=== PATIENT | female | born 1965 | race American Indian/Alaskan Native ===

== ENCOUNTER 2017-06-28 14:32 | Emergency (ER) | payer MEDICAID ==
[2017-06-28 15:07] LABS: Basophils % (Auto) 0.6 % (0.0-1.8); Eosinophils % (Auto) 1.9 % (0.0-4.3); Hematocrit 36.4 % (30.3-42.9); Mean Corpuscular HGB Conc 33 % (30-34); Mean Corpuscular Hemoglobin 26 pg (28-32); Mean Corpuscular Volume 80 fl (79-97); Platelet Count 378 K/mm3 (140-440); Red Blood Count 4.53 M/mm3 (3.65-5.03); Red Cell Distribution Width 15.7 % (13.2-15.2); White Blood Count 6.1 K/mm3 (4.5-11.0)
[2017-06-28 15:25] LABS: Anion Gap 17 mmol/L; BUN/Creatinine Ratio 14; Blood Urea Nitrogen 11 mg/dL (7-17); Carbon Dioxide 28 mmol/L (22-30); Chloride 103.2 mmol/L (98-107); Glucose 97 mg/dL (65-100); Potassium 3.7 mmol/L (3.6-5.0); Sodium 144 mmol/L (137-145)
--- NOTE | 2017-06-28 15:34 | XRay Report ---
ROUTINE CHEST, TWO VIEWS: HISTORY: chest pain. The trachea, heart, mediastinal contour, lung pablo and bony thorax are unremarkable. IMPRESSION: Unremarkable chest x-ray.
[2017-06-28 19:04] LABS: Alanine Aminotransferase 15 units/L (7-56); Albumin/Globulin Ratio 1.4 %; Alkaline Phosphatase 89 units/L (35-129); Total Protein 6.9 g/dL (6.3-8.2)
[2017-06-28 19:09] LABS: Bilirubin,Direct < 0.2 mg/dL (0-0.2)
--- NOTE | 2017-06-28 21:23 | Emergency Department Report ---
HPI - General Chief Complaint: Chest Pain Time Seen by Provider: 06/28/17 18:07 - HPI HPI: This is a 51 year-old female presents to the emergency department with a complaint of hypertension a headache and some chest discomfort. The patient has been out of her amlodipine for 2 weeks as well as some of her other medications. She was unable to get an appointment with her PCP, Dr. Peñaloza at [place], until tomorrow. When she started feeling these symptoms today she went to the fire department and was found have elevated blood pressure and then was transported to [facility] for further evaluation. When she got here she says that the symptoms have since resolved but she does complain of some abdominal discomfort. She denies any problems with bowel or bladder, numbness or paresthesias, dysuria, vaginal bleeding or discharge. She has a past medical history of arthritis, hypertension. No recent travel or sick contacts at home. She did not take anything for her symptoms prior to presentation. ED Past Medical Hx - Past Medical History Hx Hypertension: Yes Hx Arthritis: Yes (knees) - Surgical History Past Surgical History?: Yes Additional Surgical History: 2004 knee - Social History Smoking Status: Never Smoker Substance Use Type: Alcohol - Medications Home Medications: Home Medications Medication Instructions Recorded Confirmed Last Taken Type Ibuprofen 800 mg PO Q8H PRN #30 tablet 06/28/17 Unknown Rx Ranitidine HCl [Acid Agriculture Instructor] 150 mg PO QDAY #30 tablet 06/28/17 Unknown Rx amLODIPine [Norvasc] 5 mg PO DAILY #30 tab 06/28/17 Unknown Rx ED Review of Systems ROS: Stated complaint: NAUSEA AND VOMITING Other details as noted in HPI Comment: All other systems reviewed and negative Constitutional: denies: chills, fever Eyes: denies: eye pain, eye discharge, vision change ENT: denies: ear pain, throat pain Respiratory: denies: cough, shortness of breath, wheezing Cardiovascular: chest pain. denies: palpitations Gastrointestinal: abdominal pain. denies: vomiting Genitourinary: denies: urgency, dysuria, discharge Musculoskeletal: denies: back pain, joint swelling, arthralgia Skin: denies: rash, lesions Neurological: headache. denies: numbness, paresthesias Physical Exam - Physical Exam Vital Signs: Vital Signs 06/28/17 06/28/17 06/28/17 14:43 17:04 17:15 Temperature 98.4 F Pulse Rate 61 Respiratory 16 Rate Blood Pressure 124/80 119/76 O2 Sat by Pulse 95 96 100 Oximetry Physical Exam: GENERAL: The patient is well-developed well-nourished. HENT: Normocephalic. Atraumatic. Patient has moist mucous membranes. EYES: Extraocular motions are intact. Pupils equal reactive to light bilaterally. NECK: Supple. Trachea is midline. CHEST/LUNGS: Clear to auscultation. There is no respiratory distress noted. HEART/CARDIOVASCULAR: Regular. There is no tachycardia. There is no gallop rub or murmur. ABDOMEN: Abdomen is soft, nontender. Patient has normal bowel sounds. There is no abdominal distention. SKIN: Skin is warm and dry. NEURO: The patient is awake, alert, and oriented. The patient is cooperative. The patient has no focal neurologic deficits. The patient has normal speech. MUSCULOSKELETAL: There is no tenderness or deformity. There is no limitation range of motion. There is no evidence of acute injury. ED Course Vital Signs 06/28/17 06/28/17 06/28/17 14:43 17:04 17:15 Temperature 98.4 F Pulse Rate 61 Respiratory 16 Rate Blood Pressure 124/80 119/76 O2 Sat by Pulse 95 96 100 Oximetry ED Medical Decision Making - Lab Data Result diagrams: 06/28/17 14:53 06/28/17 14:53 - EKG Data -: EKG Interpreted by Me EKG shows normal: sinus rhythm, axis, intervals, QRS complexes, ST-T waves Rate: normal - EKG Data When compared to previous EKG there are: previous EKG unavailable Interpretation: normal EKG - Radiology Data Radiology results: image reviewed interpreted by me: Chest x-ray does not show any acute process. There are no pleural effusions, obvious pneumonia and there is no pneumothorax. Abdominal x-ray shows nonspecific nonobstructive bowel gas. - Medical Decision Making This patient presented originally with complaint of some headache and/or chest discomfort that has been going on for the past couple days that led her to believe her blood pressure was elevated. It was found to be elevated when she went to the fire department and was transported here. Those symptoms have since resolved. When I saw her she complained of some abdominal discomfort but that also later resolved as well. She did have a chest x-ray and an abdominal x -ray here that did not show any acute processes. Her labs have been unremarkable including negative troponins 3 and a negative d-dimer. EKG doesn' t show any signs of ST elevation LA or dysrhythmia. The patient's vital signs and stable throughout her ED course. She was reevaluated multiple times of multiple hours and remained stable and prior to discharge is asymptomatic. She is low on the Heart score criteria. Currently she would be a PALOMA score of 0. She has an appointment with her primary care physician tomorrow. She was given a refill of her H2 mehnaz, ibuprofen/NSAID and her blood pressure medication. She was also given a referral for cardiology to get an outpatient stress test. However she is agreed to return to the emergency department immediately with any return of her symptoms or any acute distress. It should be noted that there are a few vitals and/or statistics that errors in charting. The patient is not significantly obese and is certainly not 300 kg or 8 BMI of 100. The patient also did not have any hypoxia and her last pulse ox was listed as 71%. The patient has not had any shortness of breath or any hypoxia that was most likely recorded accidentally as the patient was getting her telemetry removed. Critical Care Time: No Critical care attestation.: If time is entered above; I have spent that time in minutes in the direct care of this critically ill patient, excluding procedure time. ED Disposition Clinical Impression: Medication refill Hypertension Qualifiers: Hypertension type: essential hypertension Qualified Code(s): I10 - Essential ( primary) hypertension Abdominal pain Qualifiers: Abdominal location: generalized Qualified Code(s): R10.84 - Generalized abdominal pain Chest pain Qualifiers: Chest pain type: unspecified Qualified Code(s): R07.9 - Chest pain, unspecified Disposition: DC-01 TO HOME OR SELFCARE Is pt being admited?: No Condition: Stable Instructions: Chest Pain (ED), Hypertension (ED) Additional Instructions: Please follow-up with your primary care physician tomorrow as previously scheduled. I've given her a referral for a local quality assurance qa lab technician, Dr. Santos, follow-up regarding your complaint of previous chest pain. He needs to return to the emergency department immediately with any return of your chest pain or any other worsening of her symptoms or any other acute distress. Prescriptions: amLODIPine [Norvasc] 5 mg PO DAILY #30 tab Ibuprofen 800 mg PO Q8H PRN #30 tablet PRN Reason: Pain Ranitidine HCl [Acid Agriculture Instructor] 150 mg PO QDAY #30 tablet Referrals: CARLA EMERY [Other] - 3-5 Days NO SANTOS MD [Staff Physician] - 3-5 Days [facility] [Outside] - 3-5 Days Forms: Accompanied Note Time of Disposition: 21:26
--- NOTE | 2017-06-28 21:52 | XRay Report ---
FINAL REPORT PROCEDURE: Abdomen. TECHNIQUE: Supine and upright views. HISTORY: Abdominal pain. COMPARISON: No prior studies are available for comparison. FINDINGS: The bowel gas pattern is normal. There are no signs of obstruction. There is no evidence of pneumoperitoneum. The soft tissues are unremarkable. There are calcified pelvic phleboliths. The regional skeleton appears intact. IMPRESSION: No evidence of acute disease.
[2017-06-28 22:13] VITALS: BP 153/105
== END 2017-06-28 22:14 | disposition home or self-care (01) ==
LOC: ED 14:32
DX: I10 Essential (primary) hypertension (principal); R07.9 Chest pain, unspecified; R10.9 Unspecified abdominal pain; M19.90 Unspecified osteoarthritis, unspecified site
CPT/HCPCS: 36415; 71020; 74020; 80048; 80074; 84484; 85025; 85379; 93005; 93010; 99284

== ENCOUNTER 2019-05-26 13:34 | Outpatient (CLI) | payer MEDICAID ==
--- NOTE | 2019-05-26 14:10 | Mammography Report ---
LEFT DIGITAL DIAGNOSTIC MAMMOGRAM CLINICAL: For clip placement after ultrasound guided needle biopsy. COMPARISON: [facility] 04/29/2019 mammogram FINDINGS: A biopsy clip is identified at 12:30 o'clock approximately 11 cm from the nipple and correl ates with the recently identified palpable lump. IMPRESSION: Concordant clip deployment. BI-RADS Category 4: Suspicious Signer Name: Marbin Baldwin MD Signed: 05/26/2019 2:06 PM Workstation Name: [id number]
== END 2019-05-26 13:35 | disposition home or self-care (01) ==
LOC: SPVWC 13:34
PROVIDERS: ATTEND Surgery
DX: N63.42 Unspecified lump in left breast, subareolar (principal); I10 Essential (primary) hypertension; M19.90 Unspecified osteoarthritis, unspecified site

== ENCOUNTER 2019-05-27 08:26 | Outpatient (CLI) | payer MEDICAID | END 2019-05-27 08:27 | disposition home or self-care (01) | LOC: LABHHL 08:26 | PROVIDERS: ATTEND Surgery | DX: N63.42 Unspecified lump in left breast, subareolar (principal); I10 Essential (primary) hypertension; M19.90 Unspecified osteoarthritis, unspecified site | CPT/HCPCS: 88112; 88305; 88342 ==